=== PATIENT | female | born 1940 | race Caucasian/White ===

== ENCOUNTER 2016-10-12 08:53 | Emergency (ER) | payer OTHER ==
[~2016-10-12] VITALS: Ht 160 cm; Wt 70.0 kg
[~2016-10-12 08:53] MED LIST: ATARAX,VISTARIL25 MG PO; BLEPHAMIDE BOTH EYES; CEPHALEXIN500 MG PO; CLINDAMYCIN HC300 MG PO; CLOBETASOL PROP50 ML TP; DERMA-SMOOT118.28 ML TP; FLEXERIL10 MG PO; GLIPIZIDE XL5 MG PO; GLUCOTROL10 MG PO; K-DUR20 MEQ PO; KEFLEX500 MG PO; KLOR-CON 1010 MEQ PO; LEXAPRO10 MG PO; LISINOPRIL10 MG PO; LORTAB 5-325 M1 EACH PO; MEDROL DOSEPAK4 MG PO; METOPROLOL SUCC25 MG PO; MOBIC7.5 MG PO; MOTRIN600 MG PO; OCUVITE TABLET1 EACH PO; OMEPRAZOLE20 M1 PO; OTEZLA30 MG PO; OXYCODONE-ACET1 EACH PO; PERCOCET 5/31 TABLET PO; PREVACID30 MG PO; TOPROL XL25 MG PO; ZOCOR80 MG PO; [UNRECOGNIZED DRUG - OTHER] TP; [UNRECOGNIZED DRUG - REMARK]
[2016-10-12 10:22] LABS: BASOPHIL COUNT 0.1 K/uL (0-0.1); EOSINOPHIL COUNT 0.1 K/uL (0-0.3); HEMATOCRIT 49.3 % (36.0-46.0); IMMATURE GRANULOCYTE (%) 0.2 % (0.0-0.7); INSTRUMENT ABS NEUTROPHIL CT 3.3 K/uL; MCH 34.3 PG (29.0-34.0); MCHC 34.7 G/DL (30.0-36.0); MEAN PLAT.VOLUME 11.9 uM^3 (9.5-12.4); MONOCYTE (%) 7.4 % (3-12); MONOCYTE COUNT 0.4 K/uL (0-0.8); NEUTROPHIL (%) 55.6 % (45-76); NEUTROPHIL COUNT 3.3 K/uL (1.8-6.4); PLATELET COUNT 186 K/uL (156-360); RBC DIS.WIDTH-CV 12.5 % (11.8-14.6); RBC DIS.WIDTH-SD 45.8 % (39-53); RED BLOOD COUNT 4.98 M/uL (3.80-5.20); WHITE BLOOD COUNT 5.8 K/uL (4.1-10.2)
[2016-10-12 10:30] LABS: CHLORIDE 103 mEq/L (99-109); POTASSIUM 3.3 mEq/L (3.7-5.4); SODIUM 140 mEq/L (136-147)
[2016-10-12 10:32] LABS: GLUCOSE 178 mg/dL (70-99)
[2016-10-12 10:33] LABS: ANION GAP 15 MEQ/L (2-14)
[2016-10-12 10:34] LABS: TOTAL BILIRUBIN 1.5 mg/dL (0.0-1.0)
[2016-10-12 10:35] LABS: ALKALINE PHOSPHATASE 102 IU/L (3-129)
[2016-10-12 10:36] LABS: GFR ESTIMATE (CALCULATED) > 59 mL/min/
[2016-10-12 10:37] LABS: UREA NITROGEN (BUN) 11 mg/dL (9-23)
[2016-10-12 10:39] LABS: LIPASE 16 U/L (1.0-51.0)
[2016-10-12 11:36] LABS: ADD MIUA? NO; BILIRUBIN NEGATIVE; BLOOD NEGATIVE; COLOR STRAW ((YELLOW)); GLUCOSE (STRIP) 50; KETONES NEGATIVE; LEUKOCYTES NEGATIVE; NITRITE NEGATIVE; PROTEIN (STRIP) NEGATIVE; UCUL ADDED? NO; UROBILINOGEN 0.2 MG/DL (0.2-1.0)
[2016-10-12 13:53] VITALS: BP 153/98
== END 2016-10-12 14:01 | disposition home or self-care (01) ==
LOC: EME 08:53
PROVIDERS: Emergency Medicine
DX: R10.9 Unspecified abdominal pain (principal); I10 Essential (primary) hypertension; E11.9 Type 2 diabetes mellitus without complications; I25.2 Old myocardial infarction; F17.200 Nicotine dependence, unspecified, uncomplicated
CPT/HCPCS: 74177; 80053; 81003; 83605; 83690; 85025; 99281; 99285; J2405; J7030

== ENCOUNTER 2016-10-17 16:23 | Emergency (ER) | payer OTHER ==
[~2016-10-17] VITALS: Ht 160 cm; Wt 70.0 kg
[2016-10-17 17:36] LABS: EOSINOPHIL (%) 2.2 % (0-5); EOSINOPHIL COUNT 0.1 K/uL (0-0.3); HEMATOCRIT 48.3 % (36.0-46.0); IMMATURE GRANULOCYTE (%) 0.2 % (0.0-0.7); INSTRUMENT ABS NEUTROPHIL CT 2.4 K/uL; LYMPHOCYTE COUNT 2.7 K/uL (1.0-2.8); MCV 100.2 FL (83-99); MEAN PLAT.VOLUME 11.3 uM^3 (9.5-12.4); MONOCYTE (%) 10.4 % (3-12); MONOCYTE COUNT 0.6 K/uL (0-0.8); NEUTROPHIL (%) 40.5 % (45-76); NEUTROPHIL COUNT 2.4 K/uL (1.8-6.4); PLATELET COUNT 162 K/uL (156-360); RBC DIS.WIDTH-CV 12.6 % (11.8-14.6); RBC DIS.WIDTH-SD 46.7 % (39-53); RED BLOOD COUNT 4.82 M/uL (3.80-5.20); WHITE BLOOD COUNT 5.9 K/uL (4.1-10.2)
[2016-10-17 17:49] LABS: CHLORIDE 104 mEq/L (99-109); POTASSIUM 3.7 mEq/L (3.7-5.4); SODIUM 142 mEq/L (136-147)
[2016-10-17 17:51] LABS: GLUCOSE 140 mg/dL (70-99)
[2016-10-17 17:52] LABS: ANION GAP 13 MEQ/L (2-14)
[2016-10-17 17:55] LABS: ALKALINE PHOSPHATASE 92 IU/L (3-129); GFR ESTIMATE (CALCULATED) > 59 mL/min/
[2016-10-17 17:56] LABS: UREA NITROGEN (BUN) 12 mg/dL (9-23)
[2016-10-17 18:03] LABS: TOTAL BILIRUBIN 1.1 mg/dL (0.0-1.0)
[2016-10-17] MEDS ORDERED: FLEET ENEMA-AD118 ML PR (19:40)
[2016-10-17 19:56] VITALS: BP 200/112
== END 2016-10-17 20:05 | disposition home or self-care (01) ==
LOC: EME 16:23
PROVIDERS: Emergency Medicine
DX: R10.9 Unspecified abdominal pain (principal); I10 Essential (primary) hypertension; E11.9 Type 2 diabetes mellitus without complications; Z79.84 Long term (current) use of oral hypoglycemic drugs; I25.2 Old myocardial infarction; F17.200 Nicotine dependence, unspecified, uncomplicated
CPT/HCPCS: 74000; 80053; 83605; 85025; 99281; 99285; J7030

== ENCOUNTER → 2016-12-03 | Outpatient (CLI) | payer OTHER ==
[~2016-12-03] VITALS: Ht 158.8 cm; Wt 65.9 kg
[~2016-12-03] MED LIST changes: +DILTIAZEM 24HR240 MG PO; +FLEET ENEMA-AD118 ML PR; +PRINIVIL20 MG PO; +VITAMIN B122500 MCG PO; +VITAMIN D5000 UNI1 PO; +ZOLOFT100 MG PO
[2016-12-03 08:09] LABS: POINT-OF-CARE METER ID UU14107333
== END | disposition home or self-care (01) ==
LOC: AMB 07:10
PROVIDERS: Internal Medicine
DX: Z12.11 Encounter for screening for malignant neoplasm of colon (principal); D12.5 Benign neoplasm of sigmoid colon; K62.1 Rectal polyp; D12.2 Benign neoplasm of ascending colon; D12.3 Benign neoplasm of transverse colon; K64.8 Other hemorrhoids; K59.00 Constipation, unspecified; K21.9 Gastro-esophageal reflux disease without esophagitis; I25.10 Atherosclerotic heart disease of native coronary artery without angina pectoris; E11.42 Type 2 diabetes mellitus with diabetic polyneuropathy; F41.8 Other specified anxiety disorders; E78.5 Hyperlipidemia, unspecified; I10 Essential (primary) hypertension; E87.6 Hypokalemia; E80.6 Other disorders of bilirubin metabolism; M81.0 Age-related osteoporosis without current pathological fracture; I73.9 Peripheral vascular disease, unspecified; L40.50 Arthropathic psoriasis, unspecified; Z79.84 Long term (current) use of oral hypoglycemic drugs; Z88.8 Allergy status to other drugs, medicaments and biological substances; Z79.899 Other long term (current) drug therapy
CPT/HCPCS: 82948; 88305; J2250; J3010

== ENCOUNTER 2017-08-14 14:12 | Emergency (ER) | payer OTHER ==
[~2017-08-14] VITALS: Ht 160 cm; Wt 67.6 kg
[2017-08-14] MEDS ORDERED: NORCO 5/3251 TABLET PO (18:45)
[2017-08-14] MEDS ORDERED: KEFLEX500 MG PO (18:45)
[2017-08-14 19:51] VITALS: BP 206/121
== END 2017-08-14 19:53 | disposition home or self-care (01) ==
LOC: EME 14:12
PROC: 0W9N3ZZ Drainage of Female Perineum, Percutaneous Approach (ICD-10-PCS; principal; 2017-08-14)
DX: L02.215 Cutaneous abscess of perineum (principal); I10 Essential (primary) hypertension; F32.9 Major depressive disorder, single episode, unspecified; E11.9 Type 2 diabetes mellitus without complications; I25.2 Old myocardial infarction; K21.9 Gastro-esophageal reflux disease without esophagitis; F17.200 Nicotine dependence, unspecified, uncomplicated
CPT/HCPCS: 87070; 87075; 87077; 87186; 87205; 99281; 99284

== ENCOUNTER 2017-10-02 22:04 | Observation (INO) | payer OTHER ==
[~2017-10-02] VITALS: Ht 157.5 cm; Wt 67.8 kg
[~2017-10-02 22:04] MED LIST changes: +NORCO 5/3251 TABLET PO; -PRINIVIL20 MG PO; -ZOLOFT100 MG PO
[2017-10-02 22:37] LABS: HEMATOCRIT 41.1 % (36.0-46.0); HEMOGLOBIN 14.1 G/DL (11.9-15.5); MCH 34.1 PG (29.0-34.0); MCHC 34.3 G/DL (30.0-36.0); MCV 99.5 FL (83-99); PLATELET COUNT 169 K/uL (156-360); RBC DIS.WIDTH-CV 13.3 % (11.8-14.6); RBC DIS.WIDTH-SD 49.1 % (39-53); RED BLOOD COUNT 4.13 M/uL (3.80-5.20); WHITE BLOOD COUNT 9.4 K/uL (4.1-10.2)
[2017-10-02 22:42] LABS: ALBUMIN 4.4 g/dL (3.2-4.8); CHLORIDE 108 mEq/L (99-109)
[2017-10-02 22:43] LABS: POTASSIUM 3.3 mEq/L (3.7-5.4); SODIUM 143 mEq/L (136-147)
[2017-10-02 22:45] LABS: TOTAL PROTEIN 7.3 g/dL (6.4-8.3)
[2017-10-02 22:47] LABS: TOTAL BILIRUBIN 1.1 mg/dL (0.0-1.0)
[2017-10-02 22:48] LABS: ALKALINE PHOSPHATASE 83 IU/L (3-129)
[2017-10-02 22:49] LABS: GFR ESTIMATE (CALCULATED) 57 mL/min/
[2017-10-02 22:50] LABS: AST (GOT) 17 IU/L (2-34); DIRECT BILIRUBIN 0.4 mg/dL (0.0-0.3); UREA NITROGEN (BUN) 18 mg/dL (9-23)
[2017-10-02 22:51] LABS: ALT (GPT) 17 IU/L (3-49); GLUCOSE 38 mg/dL (70-99)
[2017-10-02 22:52] LABS: LIPASE 19 U/L (1.0-51.0)
[2017-10-02 22:53] LABS: TROP-I INTERPRETATION NEGATIVE; TROPONIN-I < 0.01 ng/mL (0.0-0.30)
[2017-10-03] VITALS (7 sets, daily range): BP systolic 147–185; BP diastolic 68–100
[2017-10-03 02:48] LABS: TROP-I INTERPRETATION NEGATIVE; TROPONIN-I < 0.01 ng/mL (0.0-0.30)
[2017-10-03 08:33] LABS: TROP-I INTERPRETATION NEGATIVE; TROPONIN-I 0.01 ng/mL (0.0-0.30)
[2017-10-03] MEDS ORDERED: LISINOPRIL40 MG PO ×2 (12:46→16:31)
[2017-10-03] MEDS ORDERED: PRAVASTATIN SOD80 MG PO (12:46)
[2017-10-03] MEDS ORDERED: SERTRALINE HCL100 MG PO (12:47)
[2017-10-03] MEDS ORDERED: ASPIR-LOW81 MG PO (12:47)
[2017-10-03 13:57] LABS: TROP-I INTERPRETATION NEGATIVE; TROPONIN-I < 0.01 ng/mL (0.0-0.30)
[2017-10-03] MEDS ORDERED: GLUCOTROL10 MG PO (16:24)
[2017-10-03] MEDS ORDERED: ATORVASTATIN CA20 MG PO (16:26)
[2017-10-03] MEDS ORDERED: ZOLOFT100 MG PO (16:28)
[2017-10-03] MEDS ORDERED: HUMIRA40 MG/0.1 SC (16:33)
[2017-10-03] MEDS ORDERED: KENALOG,ARISTOC80 G1 TP (16:34)
[2017-10-04 04:18] VITALS: BP 150/74
[2017-10-04 08:13] VITALS: BP 190/80
[2017-10-04 11:18] VITALS: BP 136/61
[2017-10-04] MEDS ORDERED: METFORMIN HCL500 MG PO (12:21)
[2017-10-04] MEDS ORDERED: NIFEDIPINE ER60 MG PO (12:21)
== END 2017-10-04 13:26 | disposition home or self-care (01) ==
LOC: EME 22:04 → EDOF 10-03 00:05 → 4SOUTH 10-03 00:05 → EDOF 10-03 00:05 → 4SOUTH 10-03 01:39
PROVIDERS: Emergency Medicine; Family Medicine
DX: R07.9 Chest pain, unspecified (principal); R53.1 Weakness; R42 Dizziness and giddiness; E11.649 Type 2 diabetes mellitus with hypoglycemia without coma; I10 Essential (primary) hypertension; I25.10 Atherosclerotic heart disease of native coronary artery without angina pectoris; I25.2 Old myocardial infarction; Z95.5 Presence of coronary angioplasty implant and graft; K21.9 Gastro-esophageal reflux disease without esophagitis; E78.5 Hyperlipidemia, unspecified; F32.9 Major depressive disorder, single episode, unspecified; F17.200 Nicotine dependence, unspecified, uncomplicated; Z79.84 Long term (current) use of oral hypoglycemic drugs
CPT/HCPCS: 70450; 71046; 80048; 80076; 82948; 83690; 84484; 85027; 93005; 99281; 99285; G0378; J0360; J1650